=== PATIENT | male | born 1950 | race Caucasian/White ===

== ENCOUNTER 2018-08-23 07:56 | Outpatient (CLI) | payer OTHER ==
[2018-08-23 10:11] LABS: BASOPHILS % (AUTO) 0.6 %; EOSINOPHILS # (AUTO) 0.2 10^3/uL (0.0-0.7); EOSINOPHILS % (AUTO) 2.8 %; LYMPHOCYTES # (AUTO) 1.2 10^3/uL (1.5-3.5); LYMPHOCYTES % (AUTO) 16.9 %; MEAN CORPUSCULAR HEMOGLOBIN 28.7 pg (27.0-31.0); MEAN PLATELET VOLUME 11.4 fL (7.4-11.4); MONOCYTES # (AUTO) 0.5 10^3/uL (0.0-1.0); MONOCYTES % (AUTO) 7.2 %; NEUTROPHILS # (AUTO) 5.3 10^3/uL (1.5-6.6); NEUTROPHILS % (AUTO) 72.4 %; PLT - PLATELET COUNT 203 10^3/uL (130-450); RED BLOOD COUNT 5.22 10^6/uL (4.70-6.10); RED CELL DISTRIBUTION WIDTH 11.9 % (12.0-15.0); WHITE BLOOD COUNT 7.3 x10^3/uL (4.8-10.8)
[2018-08-23 10:29] LABS: ALBUMIN 4.3 g/dL (3.2-5.5); ALBUMIN/GLOBULIN RATIO 1.7 (1.0-2.2); ALKALINE PHOSPHATASE 52 IU/L (42-121); ALT ALANINE AMINOTRANSFERASE 19 IU/L (10-60); AST ASPARTATE AMINOTRANSFERASE 13 IU/L (10-42); BILIRUBIN,TOTAL 1.1 mg/dL (0.2-1.0); BUN - BLOOD UREA NITROGEN 15 mg/dL (6-20); CALCIUM 9.4 mg/dL (8.5-10.3); CARBON DIOXIDE - CO2 25 mmol/L (21-32); CHLORIDE 108 mmol/L (101-111); CHOL/HDL RATIO 2.8 (<5.0); CHOLESTEROL 131 mg/dL; CK- CREATINE KINASE 127 IU/L (22-269); CREATININE 0.9 mg/dL (0.6-1.2); GFR - MDRD 84 (>89); GLUCOSE 113 mg/dL (70-100); HDL CHOLESTEROL 47 mg/dL; LDL CHOLESTEROL,CALCULATED 68 mg/dL; LDL/HDL RATIO 1.4 (<3.6); SODIUM 142 mmol/L (135-145); TOTAL PROTEIN 6.9 g/dL (6.7-8.2); VLDL CHOLESTEROL 16 mg/dL
[2018-08-24 12:04] LABS: HEPATITIS C ANTIBODY NON-REACTIVE (NON-REACTIVE)
== END 2018-08-23 07:57 | disposition home or self-care (01) ==
LOC: LAB.F 07:56
PROVIDERS: ATTEND Internal Medicine
DX: Z12.5 Encounter for screening for malignant neoplasm of prostate (principal); Z79.899 Other long term (current) drug therapy; Z11.59 Encounter for screening for other viral diseases; Z13.6 Encounter for screening for cardiovascular disorders; E78.5 Hyperlipidemia, unspecified; K40.90 Unilateral inguinal hernia, without obstruction or gangrene, not specified as recurrent
CPT/HCPCS: 36415; 80053; 80061; 82550; 83721; 84153; 84443; 85025; 86803

== ENCOUNTER 2018-11-05 07:11 | Day surgery (SDC) | payer OTHER ==
[~2018-11-05 07:11] MED LIST: CEFAZOLIN SODIUM IN 0.9 % NACL 2 GM/100 ML BAG IV ONE
[2018-11-05] MEDS ORDERED: BUPIVACAINE 0.5%-EPI 1:200000 PF 10 ML VIAL ONE (07:17)
[2018-11-05] MEDS ORDERED: LIDOCAINE 1% 50 ML MDV ONE (07:17)
[2018-11-05] MEDS ORDERED: LACTATED RINGERS 1,000 ML IV ONE (07:30)
--- NOTE | 2018-11-05 08:16 | ANESTHESIA ---
Pre-Anesthesia VS, & Labs - Diagnosis LEFT INGINAL HERNIA - Procedure left inginal hernia repair Vital Signs: Temp Pulse Resp BP Pulse Ox 36.2 C L 73 18 133/72 H 96 11/05/18 07:23 11/05/18 07:23 11/05/18 07:23 11/05/18 07:23 11/05/18 07:23 Height 5 ft 10 in Weight (kg) 76 kg - NPO >8 hours Home Medications and Allergies Home Medications: Ambulatory Orders Aspirin [Aspirin EC] 81 mg PO DAILY 10/29/18 Cholecalciferol (Vitamin D3) [Vitamin D] 2,000 unit PO DAILY 10/29/18 Krill/Om-3/Dha/Epa/Phospho/Ast [Krill Oil 500 mg Softgel] 1 each PO DAILY 10/29/18 Multivitamin [Multiple Vitamins] 1 each PO DAILY 10/29/18 Simvastatin 40 mg PO QPM 10/29/18 Aspirin [Aspirin EC] 81 mg PO DAILY 10/29/18 Cholecalciferol (Vitamin D3) [Vitamin D] 2,000 unit PO DAILY 10/29/18 Krill/Om-3/Dha/Epa/Phospho/Ast [Krill Oil 500 mg Softgel] 1 each PO DAILY 10/29/18 Multivitamin [Multiple Vitamins] 1 each PO DAILY 10/29/18 Simvastatin 40 mg PO QPM 10/29/18 Allergies/Adverse Reactions: Allergies Allergy/AdvReac Type Severity Reaction Status Date / Time Penicillins Allergy Unknown Verified 10/29/18 16:28 Anes History & Medical History - Anesthetic History Anesthesia Complications: reports: No previous complications - Medical History Cardiovascular: reports: High cholesterol Pulmonary: reports: None Gastrointestinal: reports: None Urinary: reports: None Musculoskeletal: reports: None Endocrine/Autoimmune: reports: None Skin: reports: None Smoking Status: Former smoker - Surgical History General: Other (hernia repair on right) Eyes Ears Nose Throat (EENT): Tonsil/Adenoidectomy Exam General: Alert Dental: WNL Mouth Opening: Greater than 4 Fingerbreadths Mallampati classification: I Thyromental Distance: greater than 6 cm Respiratory: Lungs clear Cardiovascular: Regular rate, Normal S1, Normal S2 Plan Anesthesia Type: General Consent for Procedure(s) Verified and Reviewed: Yes Code Status: Attempt Resuscitation ASA classification: 2-Mild systemic disease Is this case an emergency?: No
[2018-11-05] MEDS ORDERED: ONDANSETRON 4 MG/2 ML VIAL IVP ONE (09:00)
[2018-11-05] MEDS ORDERED: MIDAZOLAM 2 MG/2 ML VIAL IVP ONE (09:00)
[2018-11-05] MEDS ORDERED: PROPOFOL 200 MG/20 ML VIAL IVP ONE (09:00)
[2018-11-05] MEDS ORDERED: ACETAMINOPHEN 1,000 MG/100 ML 100 ML IV ONE (09:00)
[2018-11-05] MEDS ORDERED: fentaNYL 100 MCG/2 ML VIAL IVP ONE (09:00)
[2018-11-05] MEDS ORDERED: DEXAMETHASONE 4 MG/ML VIAL IVP ONE (09:00)
[2018-11-05] MEDS ORDERED: ePHEDrine 50 MG/ML VIAL IVP ONE (09:00)
[2018-11-05] MEDS ORDERED: LIDOCAINE-MPF 2% 5 ML VIAL IM ONE (09:00)
[2018-11-05] MEDS ORDERED: ceFAZolin 1 GM VIAL ONE (09:29)
[2018-11-05] MEDS ORDERED: BUPIVACAINE 0.5%-EPI 1:200000 PF 30 ML VIAL SUBQ ONE (09:58)
[2018-11-05] MEDS ORDERED: LIDOCAINE 1% 10 ML MDV SUBQ ONE (09:58)
[2018-11-05] MEDS ORDERED: ceFAZolin 1 GM VIAL IR ONE (09:59)
--- NOTE | 2018-11-05 10:00 | OPERATIVE REPORT ---
Operative Report - General Procedure Date: 11/05/18 Planned Procedure: Left Inguinal Hernia Repair Pre-Op Diagnosis: Left Inguinal hernia Procedure Performed: Left Inguinal Hernia Repair Post Op Diagnosis: Same - Procedure Note Primary Surgeon: Emily Anesthesia Provider: CONNOR Dotson Anesthesia Technique: General LMA, Local Estimated Blood Loss (mL): 10 Findings: Large indirect left inguinal hernia Complications: None apparent - Other Other Information/Narrative: After obtaining informed consent, the patient is brought to the operating room and placed in the supine position on the operating table. Following successful induction of general anesthesia, appropriate padding of all bony prominences, and placement of appropriate monitors, the left abdomen and groin were prepped and draped in the standard surgical fashion. A timeout was held per NJOAP protocol. All elements of the surgical safety checklist were observed before, during, and following the procedure. We began with an ileal inguinal nerve block on the left side. This was done by infiltrating a mixture of local anesthetics medial to the anterior superior iliac spine. We continued by selecting a site for an incision in the left inguinal region. This was infiltrated with local anesthetic as well. The incision was created and carried down through the skin and subcutaneous tissue. Jagjit's fascia was divided revealing the external oblique aponeurosis. The aponeurosis was opened in the direction of its fibers and the leaflets reflected laterally. The spermatic cord and hernia sac were carefully identified. The hernia sac was dissected from the cord and allowed to retract back into the abdominal cavity. A large portion of preperitoneal fat was also removed from the cord and placed back into the abdominal cavity. We elected to repair this large indirect defect using a large Prolene hernia system by layered mesh implant. This was dipped in Ancef solution and deployed into the indirect defect. The posterior leaflet was then straightened and flattened in the preperitoneal space. Care was taken to be sure it was not wadded up into a ball and carefully covered the inguinal canal. The anterior leaflet was then stra ightened and flattened. A rosalio was created medially for the spermatic cord. It was closed with a single Prolene stitch. The leaflet was then tacked to the pubic tubercle medially and then placed under the external oblique aponeurosis laterally. The wound was checked for hemostasis. The external oblique aponeurosis was then closed with a running Vicryl suture. Jagjit's fascia was reapproximated with a running Vicryl suture. Monocryl stitches were placed in the skin. All sponge, needle, and instrument counts were correct at the conclusion of the case. The patient was allowed to awaken from anesthesia without difficulty and taken to the postanesthesia care unit in good condition.
[2018-11-05] MEDS ORDERED: oxyCODONE 5 MG TABLET PO PRN (10:08)
[2018-11-05] MEDS ORDERED: HYDROmorphone 0.5 MG/0.5 ML SYRINGE IVP PRN (10:08)
[2018-11-05] MEDS ORDERED: ONDANSETRON 4 MG/2 ML VIAL IVP PRN (10:08)
[2018-11-05 10:52] VITALS: BP 124/68
== END 2018-11-05 07:12 | disposition home or self-care (01) ==
LOC: SDS 07:11
PROVIDERS: ATTEND Surgery
PROC: 0YU60JZ Supplement Left Inguinal Region with Synthetic Substitute, Open Approach (ICD-10-PCS; principal; 2018-11-05 08:30)
DX: K40.90 Unilateral inguinal hernia, without obstruction or gangrene, not specified as recurrent (principal); Z87.891 Personal history of nicotine dependence
CPT/HCPCS: 49505; C1781; J0131; J0690; J7120

== ENCOUNTER 2020-02-25 09:19 | Outpatient (CLI) | payer BC | END 2020-02-25 09:20 | disposition home or self-care (01) | LOC: COV 09:19 | PROVIDERS: ATTEND Family Medicine | DX: R06.02 Shortness of breath (principal); Z20.828 Contact with and (suspected) exposure to other viral communicable diseases; R53.83 Other fatigue; M79.10 Myalgia, unspecified site; R68.83 Chills (without fever); R09.81 Nasal congestion ==

== ENCOUNTER 2022-05-12 08:41 | Outpatient (CLI) | payer MEDICARE, OTHER ==
[2022-05-12 14:41] LABS: BASOPHILS % (AUTO) 0.5 %; EOSINOPHILS # (AUTO) 0.3 10^3/uL (0.0-0.7); EOSINOPHILS % (AUTO) 4.9 %; HCT - HEMATOCRIT 48.1 % (42.0-52.0); HGB - HEMOGLOBIN 15.3 g/dL (14.0-18.0); LYMPHOCYTES # (AUTO) 1.4 10^3/uL (1.5-3.5); MEAN CORPUSCULAR HEMOGLOBIN 28.4 pg (27.0-31.0); MEAN CORPUSCULAR HGB CONC 31.8 g/dL (32.0-36.0); MEAN CORPUSCULAR VOLUME 89.4 fL (80.0-94.0); MEAN PLATELET VOLUME 10.9 fL (7.4-11.4); MONOCYTES # (AUTO) 0.7 10^3/uL (0.0-1.0); MONOCYTES % (AUTO) 9.9 %; NEUTROPHILS # (AUTO) 4.1 10^3/uL (1.5-6.6); NEUTROPHILS % (AUTO) 62.5 %; PLT - PLATELET COUNT 235 10^3/uL (130-450); RED BLOOD COUNT 5.38 10^6/uL (4.70-6.10); RED CELL DISTRIBUTION WIDTH 11.9 % (12.0-15.0); WHITE BLOOD COUNT 6.6 x10^3/uL (4.8-10.8)
[2022-05-12 15:17] LABS: ALBUMIN 4.2 g/dL (3.2-5.5); ALBUMIN/GLOBULIN RATIO 1.7 (1.0-2.2); ALKALINE PHOSPHATASE 57 IU/L (42-121); ALT ALANINE AMINOTRANSFERASE 25 IU/L (10-60); AST ASPARTATE AMINOTRANSFERASE 13 IU/L (10-42); BILIRUBIN,TOTAL 0.6 mg/dL (0.2-1.0); BUN - BLOOD UREA NITROGEN 22 mg/dL (6-20); CARBON DIOXIDE - CO2 26 mmol/L (21-32); CHLORIDE 109 mmol/L (101-111); CHOL/HDL RATIO 3.3 (<5.0); CHOLESTEROL 153 mg/dL; CREATININE 0.8 mg/dL (0.6-1.2); GFR - MDRD 95 (>89); GLUCOSE 114 mg/dL (70-100); HDL CHOLESTEROL 46 mg/dL; LDL CHOLESTEROL,CALCULATED 88 mg/dL; LDL/HDL RATIO 1.9 (<3.6); POTASSIUM 4.2 mmol/L (3.5-5.0); SODIUM 139 mmol/L (135-145); TOTAL PROTEIN 6.7 g/dL (6.7-8.2); TRIGLYCERIDES 95 mg/dL; VLDL CHOLESTEROL 19 mg/dL
[2022-05-13 12:41] LABS: ESTIMATED AVERAGE GLUCOSE 117 mg/dL (70-100); HEMOGLOBIN A1c% 5.7 % (4.27-6.07)
== END 2022-05-12 08:42 | disposition home or self-care (01) ==
LOC: LAB.S 08:41
PROVIDERS: ATTEND Internal Medicine
DX: Z00.00 Encounter for general adult medical examination without abnormal findings (principal); C44.91 Basal cell carcinoma of skin, unspecified; R03.0 Elevated blood-pressure reading, without diagnosis of hypertension; N52.9 Male erectile dysfunction, unspecified; E78.5 Hyperlipidemia, unspecified; R73.01 Impaired fasting glucose; Z79.899 Other long term (current) drug therapy
CPT/HCPCS: 36415; 80053; 80061; 83036; 83721; 84443; 85025

== ENCOUNTER 2022-05-20 09:27 | Outpatient (CLI) | payer MEDICARE, OTHER ==
--- NOTE | 2022-05-20 11:05 | XRAY Report ---
PROCEDURE: Thoracic Spine 2 View INDICATIONS: THORACIC BACK PAIN TECHNIQUE: 2 views of the thoracic spine were acquired. COMPARISON: Correlation is made with the accompanying cervical spine plain films, 05/20/2022 FINDINGS: Bones: No fractures or dislocations. No suspicious bony lesions. 13 pairs of ribs are noted, with tiny 13th vestigial ribs seen, right larger than left. The ribs appear intact where visualized. Age-appropriate degenerative changes are seen. Soft tissues: No paravertebral stripe thickening. IMPRESSION: Age-appropriate degenerative changes are seen. 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 Reviewed by: Jono Mckenzie MD on 05/20/2022 10:04 AM [facility] Approved by: Jono Mckenzie MD on 05/20/2022 10:04 AM [facility]ASM[facility] Station ID: [id number]
--- NOTE | 2022-05-20 11:06 | XRAY Report ---
PROCEDURE: Cervical Spine 2 View INDICATIONS: THORACIC BACK PAIN TECHNIQUE: 3 view(s) of the cervical spine were acquired. COMPARISON: Correlation is made with the accompanying thoracic spine plain films, 05/20/2022. FINDINGS: Bones: No fractures or dislocations to the T1 level. The lateral masses of C1 appear intact on the odontoid view. No suspicious bony lesions. The disc heights are well preserved. Mild degenerative changes are seen. Soft tissues: No prevertebral soft tissue swelling. Calcification can be seen involving carotid bif urcation regions. The visualized pulmonary apices are unremarkable. IMPRESSION: No significant cervical spine plain film abnormality can be seen. Additional findings: Carotid bifurcation region calcification. Reviewed by: Jono Mckenzie MD on 05/20/2022 10:05 AM [facility] Approved by: Jono Mckenzie MD on 05/20/2022 10:05 AM YASMINE Station ID: [id number]
== END 2022-05-20 09:28 | disposition home or self-care (01) ==
LOC: DI.S 09:27
PROVIDERS: ATTEND Internal Medicine
DX: I65.29 Occlusion and stenosis of unspecified carotid artery (principal); M47.814 Spondylosis without myelopathy or radiculopathy, thoracic region

== ENCOUNTER 2023-08-16 07:15 | Outpatient (CLI) | payer OTHER ==
[2023-08-16 15:09] LABS: BILIRUBIN,URINE NEGATIVE (NEGATIVE); GLUCOSE, URINE (UA) NEGATIVE (NEGATIVE); KETONES,URINE (UA) NEGATIVE (NEGATIVE); LEUKOCYTE ESTERASE, URINE NEGATIVE (NEGATIVE); NITRITE,URINE NEGATIVE (NEGATIVE); OCCULT BLOOD,URINE NEGATIVE (NEGATIVE); PROTEIN,URINE NEGATIVE (NEGATIVE); UROBILINOGEN,URINE 0.2 (NORMAL) E.U./dL (NORMAL)
[2023-08-16 15:15] LABS: BASOPHILS # (AUTO) 0.1 10^3/uL (0.0-0.1); BASOPHILS % (AUTO) 0.8 %; EOSINOPHILS # (AUTO) 0.2 10^3/uL (0.0-0.7); EOSINOPHILS % (AUTO) 3.2 %; HCT - HEMATOCRIT 43.6 % (42.0-52.0); HGB - HEMOGLOBIN 14.2 g/dL (14.0-18.0); LYMPHOCYTES # (AUTO) 1.4 10^3/uL (1.5-3.5); LYMPHOCYTES % (AUTO) 21.7 %; MEAN CORPUSCULAR HEMOGLOBIN 28.7 pg (27.0-31.0); MEAN CORPUSCULAR HGB CONC 32.6 g/dL (32.0-36.0); MEAN CORPUSCULAR VOLUME 88.1 fL (80.0-94.0); MEAN PLATELET VOLUME 11.1 fL (7.4-11.4); MONOCYTES # (AUTO) 0.6 10^3/uL (0.0-1.0); MONOCYTES % (AUTO) 9.3 %; NEUTROPHILS % (AUTO) 64.7 %; PLT - PLATELET COUNT 189 10^3/uL (130-450); RED BLOOD COUNT 4.95 10^6/uL (4.70-6.10); RED CELL DISTRIBUTION WIDTH 11.9 % (12.0-15.0); WHITE BLOOD COUNT 6.2 x10^3/uL (4.8-10.8)
[2023-08-16 15:31] LABS: ALBUMIN 4.1 g/dL (3.2-5.5); ALKALINE PHOSPHATASE 54 IU/L (42-121); ALT ALANINE AMINOTRANSFERASE 17 IU/L (10-60); AST ASPARTATE AMINOTRANSFERASE 11 IU/L (10-42); BILIRUBIN,TOTAL 0.7 mg/dL (0.2-1.0); BUN - BLOOD UREA NITROGEN 18 mg/dL (6-20); CALCIUM 9.7 mg/dL (8.5-10.3); CARBON DIOXIDE - CO2 28 mmol/L (21-32); CHLORIDE 109 mmol/L (101-111); CHOL/HDL RATIO 2.8 (<5.0); CHOLESTEROL 140 mg/dL; CREATININE 0.9 mg/dL (0.6-1.3); GFR - MDRD 82 (>89); GLUCOSE 102 mg/dL (74-104); HDL CHOLESTEROL 50 mg/dL; LDL CHOLESTEROL,CALCULATED 74 mg/dL; LDL/HDL RATIO 1.5 (<3.6); POTASSIUM 4.2 mmol/L (3.5-4.5); SODIUM 141 mmol/L (135-145); TOTAL PROTEIN 6.2 g/dL (6.4-8.9); TRIGLYCERIDES 81 mg/dL (48-352); VLDL CHOLESTEROL 16 mg/dL
[2023-08-16 15:32] LABS: PSA TOTAL 2.006 ng/mL (0.000-2.000)
[2023-08-16 15:33] LABS: CLARITY,URINE CLEAR (CLEAR)
[2023-08-16 15:39] LABS: THYROID STIMULATING HORMONE 2.25 uIU/mL (0.34-5.60)
[2023-08-16 21:16] LABS: ESTIMATED AVERAGE GLUCOSE 117 mg/dL (70-100); HEMOGLOBIN A1c% 5.7 % (4.27-6.07)
== END 2023-08-16 07:16 | disposition home or self-care (01) ==
LOC: LAB.S 07:15
PROVIDERS: ATTEND Internal Medicine
DX: C44.91 Basal cell carcinoma of skin, unspecified (principal); Z79.899 Other long term (current) drug therapy; N40.0 Benign prostatic hyperplasia without lower urinary tract symptoms; R73.01 Impaired fasting glucose; E78.5 Hyperlipidemia, unspecified
CPT/HCPCS: 36415; 80053; 80061; 81001; 81003; 82306; 83036; 83721; 84153; 84154; 84443; 85025; 87086